=== PATIENT | male | born 1975 | race Asian ===

== ENCOUNTER 2019-09-15 14:33 | Inpatient (IN) ==
--- NOTE | 2019-09-14 10:26 | Anesthesiology Consultation ---
Date of Service September 14, 2019 Assessment & Plan (1) Encounter for pre-operative examination: Chart Review Chart Review: Acceptable Risk for Surgery (pending CBC AM of surgery ) and Patient NOT seen in Pre Admission Testing Pt was add on surgery for tomorrow. Due to ORIF of humerus- will check CBC AM of surgery. History Surgery Operation Date: 09/15/19 08:20 Proposed Procedures p Left Humeral Shaft Fracture Open Reduction Internal Fixation - Colin Payne, Height/Weight Height: 5 ft 8 in Weight: 108.862 kg Allergies Allergy/AdvReac Type Severity Reaction Status Date / Time No Known Allergies Allergy Verified 09/14/19 10:08 Medications Home Medications Medication Instructions Recorded Confirmed Last Taken oxycodone 5 mg PO Q4H PRN 09/14/19 09/14/19 Unknown pantoprazole 20 mg PO QAM 09/14/19 09/14/19 Unknown Past Medical History Medical History GERD (gastroesophageal reflux disease) Past Surgical History Surgical History No significant past surgical history Social History Smoking Status: Never smoker Do You Dip or Chew Tobacco: No Hx Alcohol Use: No Hx Substance Use: No substance use type: does not use
[~2019-09-15 14:33] MED LIST: BUPIVACAINE 0.5 % 5 MG/1 ML PF 10ML VIAL ONE; LR 15ML/HR IV SCH
--- NOTE | 2019-09-15 15:25 | History & Physical Bridge Note ---
Date of Service September 15, 2019 History & Physical Bridge Note I have examined the patient, reviewed the History & Physical and in the interval since the performance of the History & Physical I have noted the following changes of clinical significance: no changes noted
[2019-09-15 15:26] LABS: Hematocrit (blood only) 41.8 % (42-52); Hemoglobin 13.3 g/dL (14.0-18.0); Mean Corpuscular Hemoglobin 25.5 pg (25-34); Mean Corpuscular Volume 80.2 fL (80-100); Mean Platelet Volume 10.7 fL (7.4-10.4); Platelet Count 320 K/uL (130-400); RDW Coefficient of Variation 15.2 % (11.5-14.5); RDW Standard Deviation 44.4 fL (36.4-46.3); Red Blood Count 5.21 M/uL (4.7-6.1); White Blood Count 11.81 K/uL (4.8-10.8)
[2019-09-15 15:42] LABS: Mean Corpuscular Hgb Conc 31.8 g/dL (32-36)
[2019-09-15] MEDS ORDERED: fentaNYL citrate 100 MCG/2 ML VIAL ONE ×5 (16:53→21:08)
[2019-09-15] MEDS ORDERED: LIDOCAINE HCL 2% 2 ML VIAL/AMP(20MG/ML) INFIL ONE ×2 (16:53→18:29)
[2019-09-15] MEDS ORDERED: ONDANSETRON INJ 2 MG/ML 2 ML VIAL ONE ×4 (16:53→22:21)
[2019-09-15] MEDS ORDERED: PROPOFOL IV EMULSION 10 MG/ML 20 ML VIAL IV ONE ×2 (16:53→19:26)
[2019-09-15] MEDS ORDERED: MIDAZOLAM HCL 1 MG/ML 2ML VIAL ONE ×2 (16:53→18:29)
[2019-09-15] MEDS ORDERED: CEFAZOLIN 2000MG 2,000 MG/15 ML SYR IV ONE (16:57)
[2019-09-15] MEDS ORDERED: ATROPINE SULFATE 0.1 MG/ML 10ML SYR IV PRN (17:15)
[2019-09-15] MEDS ORDERED: fentaNYL citrate 100 MCG/2 ML VIAL IV PRN (17:15)
[2019-09-15] MEDS ORDERED: ONDANSETRON INJ 2 MG/ML 2 ML VIAL IV PRN ×3 (17:15→22:51)
[2019-09-15] MEDS ORDERED: ePHEDrine sulfate 50 MG/ML AMP IV PRN (17:15)
[2019-09-15] MEDS ORDERED: DEXAMETHASONE SOD INJ 4 MG/ML VIAL ONE (18:29)
[2019-09-15] MEDS ORDERED: CEFAZOLIN 2,000 MG/15 ML IV PUSH IV ONE (19:31)
[2019-09-15] MEDS ORDERED: ESMOLOL HCL INJ 10 MG/ML 10ML VIAL IV ONE (19:49)
[2019-09-15] MEDS ORDERED: BUPIVACAINE/EPINEPHRINE 0.25% 1:200,000 30 ML VIAL ONE (20:27)
[2019-09-15] MEDS ORDERED: KETOROLAC 30 MG/ML VIAL ONE (20:30)
--- NOTE | 2019-09-15 20:44 | Operative Report ---
PG Post Operative Report Pre & Post Diagnosis Operation Date: 09/15/19 08:20 Pre-Op Diagnosis: Displaced Left Humerus Fracture Post-Op Diagnosis: Displaced Left Humerus Fracture I identified the patient and participated in the time-out.: Yes Procedure Operation Date: 09/15/19 08:20 Actual Procedures p Left Humeral Shaft Fracture Open Reduction Internal Fixation(Left) - Colin Payne DO Surgeon Colin Payne DO Typing Pool Supervisor Colin Sifuentes PAC Estimated Blood Loss 50 Findings Consistent with Post-Op Diagnosis Specimens None Complications none Disposition Disposition: Recovery Room Indications The patient is a pleasant 44-year-old male who slipped and fell on the ice several days ago. He sustained a transverse left humeral shaft fracture. It was minimally displaced. However given the nature of the fracture, I was concerned that it would take a long time to heal. He elected to proceed with an open reduction internal fixation. Description of Procedure On September 15, 2019 he arrived at [facility] for the above procedure. He was seen in the preoperative holding area and the operative extremity was identified and signed. He was given a preoperative antibiotic and taken back to the operating room. He was laid on the table in supine position and put under general anesthesia. The left arm was prepped and draped in sterile fashion. A timeout was done. The patient and the operative extremity was properly identified. An anterior lateral incision was used. Dissection was taken down through the fascia. The biceps tendon was retracted medially and the brachialis was split. The fracture was easily identified. The brachialis was cleared off the anterior lateral aspect of the humerus with a vega elevator. The fracture was reduced. A Synthes 6-hole narrow 4.5 mm plate was then placed. A single compression screw was placed distally and a compression screw was placed proximally to compress the fracture. An additional compression screw was placed in the very superior aspect to compress the plate down to the bone. Locking screws were placed in the other 3 holes. Final fluoroscopic images showed anatomic alignment of the fracture. The wound was then irrigated. The radial nerve was identified and protected throughout the case. The musculocutaneous nerve was not identified. Hemostasis was obtained. The surrounding soft tissues were injected with 30 cc of Marcaine with epinephrine. The deep fascia was closed with 2-0 Vicryl. Skin was closed with 3-0 Vicryl and marialuisa. He was then placed in a soft dressing and an arm sling. He was then extubated and transferred to a [facility]. He was taken to the postanesthesia care unit in stable condition. He tolerated the procedure well. I attest to the content of the Intraoperative Record and any orders documented therein. Any exceptions are noted below.
[2019-09-15] MEDS ORDERED: OXYCODONE/ACETAMINOPHEN 5mg/325mg TAB PO PRN (20:48)
--- NOTE | 2019-09-15 20:58 | Fluoroscopy Report ---
FL humerus LT 2V CLINICAL HISTORY: LEFT HUMERUS ORIF COMPARISON STUDY: Left humerus 09/12/2019. FLUOROSCOPY TIME: 11 seconds. FINDINGS: 2 fluoroscopic spot images of the left humerus demonstrate internal fixation of a midshaft fracture transfixed with a cortical plate and screws. The hardware appears intact. Alignment is near- anatomic. IMPRESSION: Fluoroscopy provided for internal fixation of a left humeral fracture. ACT 112: Negative or not required by law. Electronically signed by: Chase Henson M.D. 09/15/2019 8:56 PM
[2019-09-15] MEDS ORDERED: HYDROmorphone INJ 1 MG/ML SYRINGE ONE ×2 (21:31→21:52)
[2019-09-15] MEDS: HYDROmorphone INJ 1 MG/ML SYRINGE IV PRN ×2 (21:31→21:36)
--- NOTE | 2019-09-15 21:50 | Anesthesiology Progress Note ---
Date of Service September 15, 2019 Anesthesia Post Procedure Vital Signs Vital Signs: Temp Pulse Pulse Resp BP Pulse Ox 09/15/19 21:45 37.0 C 91 H 18 130/76 94 09/15/19 21:35 99 H 18 135/89 98 09/15/19 21:25 96 H 16 127/77 95 09/15/19 21:15 106 H 16 128/72 96 09/15/19 21:05 103 H 16 144/84 H 100 09/15/19 20:56 36.5 C 76 16 137/72 99 09/15/19 15:07 37 C 105 H 18 133/92 100 Pain Intensity Left Arm: Pain Intensity: 3 Transfer of Care Handoff Completed per policy Notes Mental Status: alert / awake / arousable Patient Amnestic to Procedure: Yes Nausea / Vomiting: adequately controlled Pain: adequately controlled Airway Patency, RR, SpO2: stable & adequate BP & HR: stable & adequate Hydration State: stable & adequate Anesthetic Complications: no major complications apparent and Pt Satisfied with anesthetic care
[2019-09-15] MEDS ORDERED: MAGNESIUM HYDROXIDE SUSP 30 ML UDC PO PRN (22:51)
[2019-09-15] MEDS ORDERED: ACETAMINOPHEN 500 MG TAB PO PRN (22:51)
[2019-09-15] MEDS ORDERED: OXYCODONE HCL IR 5 MG TAB (IMMEDIATE RELEASE) PO PRN (22:51)
[2019-09-15] MEDS ORDERED: HYDROmorphone INJ 1 MG/ML SYRINGE IV PRN (22:51)
[2019-09-15] MEDS ORDERED: SODIUM CHLORIDE 0.9% 1000ML 1,000 ML IV SCH (22:51)
[2019-09-15] MEDS ORDERED: NALOXONE HCL 0.4 MG/1 ML VIAL/CARP IV PRN (22:51)
[2019-09-15] MEDS ORDERED: TRAMADOL HCL 50 MG TABLET PO PRN (22:51)
[2019-09-15] MEDS ORDERED: ALUMINUM/MAGNESIUM SUSP 30 ML UDC PO PRN (22:51)
[2019-09-15] MEDS ORDERED: bisacodyL 10 MG SUPP PR PRN (22:51)
[2019-09-15] MEDS ORDERED: KETOROLAC 30 MG/ML VIAL IV PRN (22:51)
[2019-09-15] MEDS ORDERED: METOCLOPRAMIDE HCL INJ 5 MG/ML 2 ML VIAL IV PRN (22:51)
[2019-09-16] MEDS ORDERED: FAMOTIDINE 20 MG in SYRINGE 3 ML IV SCH (02:45)
[2019-09-16] MEDS ORDERED: CEFAZOLIN 1000MG 1,000 MG/7.5 ML SYR IV SCH (04:00)
[2019-09-16] MEDS ORDERED: DOCUSATE SODIUM 100 MG CAP PO SCH (09:00)
[2019-09-16] MEDS ORDERED: MULTIVITAMIN TAB PO SCH (09:00)
[2019-09-16] MEDS ORDERED: Nursing to Pharmacy Communication ONE (09:07)
--- NOTE | 2019-09-16 09:52 | Orthopedic Progress Note ---
Date of Service September 16, 2019 Assessment & Plan (1) Closed left humeral fracture: Overall he is doing well. His pain is better controlled this morning. He can be discharged home later this morning. He will follow-up in 2 weeks. Present on Admission?: Yes Subjective Gómez was seen and examined at bedside this morning. Overall is doing fairly well. His pain is controlled in his left arm. He has no complaints. Physical Exam Musculoskeletal: On physical examination of the left arm, the dressing is mostly clean and dry. His radial median ulnar nerves are checked and intact at his wrist. He is wearing a sling as instructed. Results & Data Vital Signs (Past 12 Hours) Vital Signs Temp Pulse Pulse Resp BP Pulse Ox 09/16/19 03:30 36.4 C L 87 16 118/73 98 09/16/19 02:30 36.5 C 101 H 16 120/76 98 09/16/19 00:30 36.5 C 86 16 122/81 98 09/16/19 00:00 36.6 C 91 H 16 119/77 97 09/15/19 23:30 36.6 C 91 H 16 119/77 97 09/15/19 23:05 37.0 C 102 H 18 129/80 94 09/15/19 22:55 37.0 C 89 18 124/78 94 09/15/19 22:45 37.0 C 102 H 20 116/71 93 09/15/19 22:35 37.0 C 103 H 20 120/80 95 09/15/19 22:25 37.0 C 105 H 18 122/79 93 09/15/19 22:15 37.0 C 94 H 18 130/85 94 09/15/19 22:05 37.0 C 88 18 130/80 95 09/15/19 21:55 37.0 C 90 18 129/82 95 PG Care Time/CCT Total # of Minutes Spent Total Time Spent with Patient: Total time spent is greater than 50% in coordination of care (as documented) at patient's floor/unit and/or counseling patient: Coding Level of Care Code None Diagnoses Closed left humeral fracture S42.302A
--- NOTE | 2019-09-16 09:55 | Discharge Summary ---
Date of Service September 16, 2019 Principal Diagnosis ORIF left humerus Discharge Data Allergies Allergy/AdvReac Type Severity Reaction Status Date / Time No Known Allergies Allergy Verified 09/14/19 10:08 Procedures Performed Operation Date: 09/15/19 08:20 Actual Procedures p Left Humeral Shaft Fracture Open Reduction Internal Fixation(Left) - Colin Payne DO Ordered Studies 09/15/19 05:00 US - OR guided needle placemen Routine 09/15/19 17:00 FL fluoroscopy <1hr Routine FL humerus LT 2V Routine Hospital Course (1) Closed left humeral fracture: On September 15, 2019 the patient arrived at [facility] and underwent an open reduction internal fixation of the left humerus without complication. It was getting late in the day and he was slow to wake up from anesthesia. He was admitted overnight for pain control. On postop day #1 he was doing well. He was able to get up and ambulated around while wearing a sling. He was then discharged home on oral pain medications. He will follow-up with orthopedics in 2 weeks. Total Time Total Time Spent Total Time Spent (In Minutes): 20 Discharge Plan Discharge Items Reason For Visit: Displaced Left Humerus Fracture Discharge Diagnosis: same as above Activity: Per Instructions section Non-emergency contact: Surgeon Call non-emergency contact if: your wound has increased redness and your wound has increased drainage Follow-up/Referrals: PCPMEGGAN [Primary Care Provider] - Diet: Regular Addtl Attending Provider Instructions: General Orthopedic Discharge Instructions Activity: Medications: 1. Narcotic You will likely be sent home from the hospital with a prescription for the narcotic pain medication. Take it as needed. Side effects most commonly include nausea and constipation 2. Toradol You will likely be sent home with this anti-inflammatory. It is a post-surgical ibuprofen (NSAID). Take it for 5 days as prescribed. If you have any side effects, such as stomach upset (not nausea), then stop immediately 3. Resume previous home medications unless otherwise instructed Dressing Care: If there is a soft dressing in place then leave the dressing intact for 5 days. On the you may remove the dressing and leave the stitches open to air or cover them with band-aids. Keep the incision clean and dry Showering: If you have a soft dressing you may shower right after the surgery but do not get the dressing wet. After the dressing is removed on the 5th day then you can get the stitches wet in the shower, but do not soak or scrub them. Let the soapy shower water run over the stitches and pat them dry. If you have a hard splint, cover it in a plastic bag and keep it dry. Do not remove it until the follow up appointment. Things To Watch For: 1. Drainage from the incision site that occurs more than one week after your surgery. 2. Increased redness at the incision site. 3. Fever above 102 degrees Fahrenheit. 4. Unusual chest pain or shortness of breath. 5. [facility] at with any of the above problems Follow-Up Visit: Follow-up with Dr. Payne 2 weeks after your day of surgery. An appointment was probably scheduled when you signed-up for surgery in the office. If you have any questions call Pending Studies at Discharge: No Stand-Alone Forms: My [facility] Medications and DC Order Prescriptions: New ketorolac 10 mg tablet 10 mg PO Q8H 5 Days Qty: 15 RF: 0 oxycodone-acetaminophen [Percocet] 5-325 mg tablet 1 tab PO Q6H PRN (Reason: pain) Qty: 30 RF: 0 Continued pantoprazole 20 mg Tablet,Delayed Release (Dr/Ec) 20 mg PO QAM RF: 0 Discontinued oxycodone 5 mg tablet 5 mg PO Q4H PRN (Reason: Pain) RF: 0 ibuprofen 200 mg 400 mg PO PRN (Reason: Pain) RF: 0 Admission Data Admit Date/Time: 09/15/19 22:51 Attending Provider: Colin Payne Admit Provider: Colin Payne Primary Care Provider: PCP,NO Coding Level of Care Code D/C Day Management <30 mins Diagnoses Closed left humeral fracture S42.302A
[2019-09-16] MEDS ORDERED: PANTOprazole 40 MG TAB PO SCH (10:00)
[2019-09-16] MEDS ORDERED: SENNA 8.6 MG TAB PO SCH (21:00)
== END 2019-09-16 10:26 | disposition home or self-care (01) | DRG 494 ==
LOC: ASU 14:33 → 3E 22:51